=== PATIENT | female | born 1960 | race Caucasian/White ===

== ENCOUNTER → 2019-02-28 | Outpatient (CLI) | payer BC ==
[2019-02-28 09:29] LABS: HEMOGLOBIN 13.4 G/DL (11.5-16.0); MEAN PLATELET VOLUME 8.9 FL (7.4-10.4); RED CELL DISTRIBUTION WIDTH 13.4 % (10.0-14.5); WHITE BLOOD COUNT 3.8 10^3/uL (4.3-11.0)
[2019-02-28 09:57] LABS: ALANINE AMINOTRANSFERASE 18 U/L (0-55); ALBUMIN 4.4 GM/DL (3.2-4.5); ALKALINE PHOSPHATASE 66 U/L (40-136); BILIRUBIN,TOTAL 0.4 MG/DL (0.1-1.0); BUN/CREATININE RATIO 13; CALCIUM 9.9 MG/DL (8.5-10.1); CARBON DIOXIDE 24 MMOL/L (21-32); CHLORIDE 106 MMOL/L (98-107); CHOLESTEROL 221 MG/DL (< 200); CREATININE SERUM 0.84 MG/DL (0.60-1.30); GFR ESTIMATED > 60; GLUCOSE 98 MG/DL (70-105); HDL CHOLESTEROL 40 MG/DL (40-60); POTASSIUM 3.8 MMOL/L (3.6-5.0); SODIUM 144 MMOL/L (135-145); TOTAL PROTEIN 7.1 GM/DL (6.4-8.2); TRIGLYCERIDES 202 MG/DL (<150); VLDL CHOLESTEROL 40 MG/DL (5-40)
[2019-02-28 10:43] LABS: FREE T4 (FREE THYROXINE) 1.08 NG/DL (0.70-1.48)
== END ==
LOC: LAB 08:38
PROVIDERS: ATTEND Nurse Practitioner Family
DX: E03.9 Hypothyroidism, unspecified (principal); E55.9 Vitamin D deficiency, unspecified; D35.2 Benign neoplasm of pituitary gland
CPT/HCPCS: 36415; 80053; 80061; 82306; 84146; 84439; 84443; 85027

== ENCOUNTER → 2019-02-28 | Outpatient (CLI) | payer BC | LOC: RAD 08:34 | PROVIDERS: ATTEND Nurse Practitioner Family | DX: Z12.31 Encounter for screening mammogram for malignant neoplasm of breast (principal) | CPT/HCPCS: 77067 ==

== ENCOUNTER → 2019-05-18 | Outpatient (CLI) | payer BC ==
[2019-05-18 17:39] LABS: ABSOLUTE RETIC # 31 10e9/L (24-90); BASOPHILS % (AUTO) 0 % (0-10); EOSINOPHILS # (AUTO) 0.2 10^3/uL (0.0-0.3); EOSINOPHILS % (AUTO) 3 % (0-10); HEMATOCRIT 39 % (35-52); HEMOGLOBIN 12.8 G/DL (11.5-16.0); LYMPHOCYTES # (AUTO) 1.5 X 10^3 (1.0-4.0); LYMPHOCYTES % (AUTO) 33 % (12-44); MEAN CORPUSCULAR HEMOGLOBIN 27 PG (25-34); MEAN CORPUSCULAR HGB CONC 33 G/DL (32-36); MEAN CORPUSCULAR VOLUME 82 FL (80-99); MEAN PLATELET VOLUME 8.8 FL (7.4-10.4); MONOCYTES # (AUTO) 0.4 X 10^3 (0.0-1.0); MONOCYTES % (AUTO) 9 % (0-12); NEUTROPHILS # (AUTO) 2.6 X 10^3 (1.8-7.8); NEUTROPHILS % (AUTO) 55 % (42-75); PLATELET COUNT 211 10^3/uL (130-400); RED CELL DISTRIBUTION WIDTH 13.3 % (10.0-14.5); RETICULOCYTE % 0.64 % (0.50-2.40); WHITE BLOOD COUNT 4.7 10^3/uL (4.3-11.0)
[2019-05-18 18:19] LABS: BASOPHILS % (MANUAL) 0 %; EOSINOPHILS % (MANUAL) 6 %; LYMPHOCYTES % (MANUAL) 32 %; MONOCYTES % (MANUAL) 6 %; NEUTROPHILS % (MANUAL) 56 %; RBC MORPH NORMAL
== END ==
LOC: LAB 17:26
PROVIDERS: ATTEND Family Medicine
DX: D72.819 Decreased white blood cell count, unspecified (principal)
CPT/HCPCS: 36415; 85007; 85027; 85045

== ENCOUNTER → 2019-09-14 | Outpatient (CLI) | payer BC ==
--- NOTE | 2019-09-14 11:09 | Diagnostic Imaging Report ---
CLINICAL INDICATION: Patient passed out in the middle of the night and hit left eye. Patient has bruising and slight swelling. Patient has pain in that area. EXAM: Axial CT scan of the head performed without IV contrast. Auto Exposure Controls were utilized during the CT exam to meet ALARA standards for radiation dose reduction. COMPARISON: None. FINDINGS: There is no evidence of acute cerebral infarct, intracranial hemorrhage, or gross mass effect. The brain parenchymal volume appears appropriate for patient's age. There is normal mariano-white matter distinction. There is no significant midline shift or herniation. There is no evidence of hydrocephalus. The basal cisterns are unremarkable. There is mild extracranial soft tissue swelling in the left frontal/periorbital region. There is no skull fracture. Visualized portions of the globes and orbits are unremarkable. Otherwise, the skull, extracranial soft tissue, and orbits are unremarkable. The paranasal sinuses are unremarkable. Temporal bones show no significant abnormality. IMPRESSION: 1: There is no evidence of intracranial hemorrhage or skull fracture. 2: There is a small amount of extracranial soft tissue swelling in the left frontal/left periorbital region. The visualized portions of the orbits and globes are intact. Results of this report were discussed with Key Ye APRN, via the telephone on 09/14/2019 at 1100 hours. Dictated by: Dictated on workstation # [id number]
== END ==
LOC: RAD 10:34
PROVIDERS: ATTEND Nurse Practitioner Family
DX: S00.93XA Contusion of unspecified part of head, initial encounter (principal); W19.XXXA Unspecified fall, initial encounter
CPT/HCPCS: 70450

== ENCOUNTER → 2020-05-14 | Outpatient (CLI) | payer BC ==
--- NOTE | 2020-05-14 17:17 | Diagnostic Imaging Report ---
INDICATION: Neck and left shoulder pain AP, lateral and odontoid views of the cervical spine are obtained. There is loss of cervical lordosis with moderate narrowing of C5-C6 disc space. There is also widening of the C4-C5 interspinous space. No acute fracture or malalignment is identified. There is no evidence of thickening of prevertebral soft tissues. IMPRESSION: Localized degenerative disc disease at C5-C6 with loss of cervical lordosis. This could be related to spasm or positioning. If indicated, flexion-extension views versus MRI may be of value. Dictated by: Dictated on workstation # [id number]
== END ==
LOC: RAD 16:39
PROVIDERS: ATTEND Nurse Practitioner Family
DX: M50.322 Other cervical disc degeneration at C5-C6 level (principal); M43.8X2 Other specified deforming dorsopathies, cervical region
CPT/HCPCS: 72040

== ENCOUNTER → 2020-05-21 | Outpatient (CLI) | payer BC ==
--- NOTE | 2020-05-21 10:09 | Diagnostic Imaging Report ---
PROCEDURE: MR imaging cervical spine without contrast. TECHNIQUE: Multiplanar, multisequence MR imaging of the cervical spine was performed without contrast. INDICATION: Arm pain. FINDINGS: There is straightening of the normal cervical lordosis. The vertebral body heights are well-maintained. The prevertebral soft tissues are within normal limits. Posterior fossa is unremarkable. Visualized portions of spinal cord are normal signal intensity morphology. At C2-C3 there is no spinal or neural foraminal encroachment. At C3-C4 there is mild bilateral uncovertebral joint hypertrophy with mild bilateral neural foraminal encroachment. At C4-C5 there is some a bulging and bilateral uncovertebral joint hypertrophy. Slight effacement of ventral thecal sac and mild to moderate bilateral neural foraminal encroachment. C5-C6 there is annular bulging and bilateral uncovertebral joint hypertrophy. Mild central spinal stenosis and moderate bilateral neural foraminal encroachment. C6-C7 there is some annular bulging resulting in slight effacement of the ventral thecal sac. There is bilateral uncovertebral joint hypertrophy with moderate bilateral neural foraminal encroachment. At C7-T1 there is no spinal neural foraminal encroachment. IMPRESSION: Cervical spondylosis and multilevel degenerative disc disease as described. Dictated by: Dictated on workstation # [id number]
== END ==
LOC: RAD 09:30
PROVIDERS: ATTEND Nurse Practitioner Family
DX: M47.812 Spondylosis without myelopathy or radiculopathy, cervical region (principal); M50.323 Other cervical disc degeneration at C6-C7 level; M48.02 Spinal stenosis, cervical region
CPT/HCPCS: 72141

== ENCOUNTER → 2021-01-30 | Day surgery (SDC) | payer BC ==
[~2021-01-30] VITALS: Ht 170.2 cm; Wt 71.8 kg
[2021-01-30] VITALS (9 sets, daily range): BP systolic 108–150; BP diastolic 57–88
[~2021-01-30] MED LIST: ACHD5005 PO; ASPI-1238 PO; BUPIVACAINE 0.5% 30 ML (SENSORCAINE) VIAL ONE; CALC-823 PO; CEPH500C PO; HYDROcodone/APAP 5 MG/325 MG (LORTAB) TAB PO PRN; HYDROmorphone 2 MG/ML VIAL (DILAUDID) ONE; KETOROLAC 30 MG/ML VIAL ONE; LACTATED RINGERS 1,000 ML IV PRN; LACTATED RINGERS 1,000 ML IV SCH; LEVO125T6 PO; LIDOCAINE 1% INJ 20 ML 20 ML VIAL ONE; LIDOCAINE PF 2% 5 ML (XYLOCAINE) VIAL ONE; MELO15TA39 PO; MIDAZOLAM 2 MG/2 ML (VERSED) VIAL ONE; MULT-228 PO; ONDANSETRON 4 MG/2 ML (SDV) Z0FRAN ONE; PRAV10TA PO; SEVOFLURANE (ULTANE) 15 ML INHAL SOLN ONE; VITAMIN D3 PO; ceFAZolin INJECTION 1,000 MG in WATER (STERILE) FOR INJECTION 10 ML IV ONE; fentaNYL INJ 100 MCG/2 ML AMP ONE; morphine INJ 10 MG/ML 1ML (SYR OR VIAL) ONE; proPOfol 200 MG/20 ML (DIPRIVAN) VIAL IV ONE
--- NOTE | 2021-01-30 17:57 | Progress Note-Pre Operative ---
Pre-Operative Progress Note H&P Reviewed The H&P was reviewed, patient examined and no changes noted. Date Seen by Provider: Jan 30, 2021 Time Seen by Provider: 17:57 Date H&P Reviewed: Jan 30, 2021 Time H&P Reviewed: 17:57 Pre-Operative Diagnosis: Fractured right hallux PHIL MIRANDA DPM Jan 30, 2021 17:57
--- NOTE | 2021-01-30 19:50 | Progress Note-Post Operative ---
Post-Operative Progess Note Surgeon (s)/Well Logger (s) Surgeon PHIL MIRANDA DPM Well Logger: none Pre-Operative Diagnosis Fractured right hallux Post-Operative Diagnosis Same Procedure & Operative Findings Date of Procedure 01/30/21 Procedure Performed/Findings ORIF right hallux Anesthesia Type General Estimated Blood Loss Estimated blood loss (mL): Minimal Specimens/Packing Specimens Removed None HPIL MIRANDA DPM Jan 30, 2021 19:50
--- NOTE | 2021-01-31 04:19 | OPERATIVE REPORT ---
DATE OF SERVICE: SURGEON: Yessica Miranda DPM. PREOPERATIVE DIAGNOSIS: Comminuted fracture of the right hallux proximal phalanx. POSTOPERATIVE DIAGNOSIS: Comminuted fracture of the right hallux proximal phalanx. PROCEDURE: Open reduction and internal fixation, right hallux. WOUND CLASS: Clean. ANESTHESIA: General. HEMOSTASIS: Pneumatic thigh tourniquet at 250 mmHg. INDICATIONS: This 60-year-old female presents with a fractured right proximal phalanx. The patient's fracture distal fragment had a significant dorsal angulation causing skin dusking and significant pain for the patient. An attempt at closed reduction was performed in my office yesterday without success. The patient is agreeable to surgical intervention after risks and complications were discussed at length. No guarantees were extended to the patient and she is willing to proceed. DESCRIPTION OF PROCEDURE: The patient was brought back to the operating table, placed in secure supine position. A general anesthetic was then induced. A Patrick block injection was performed to the right lower extremity utilizing 12 mL of 1:1 mixture of 1% Xylocaine, 0.5% Marcaine. Next, the right foot was then prepped and draped in normal sterile manner. The right foot was then elevated, allowed to exsanguinate after which the thigh tourniquet was placed to 250 mmHg. C-arm was introduced to the right foot where the fracture was visualized. Attempt at a closed reduction was performed again without success. An open reduction was then attempted. A dorsal incision to the overlying the proximal phalanx was performed utilizing 4.5 cm longitudinal linear incision. The incision was deepened in the same plane with great care to identify and retract all vital neurovascular structures. The incision was deepened down to the extensor tendon where a Z slide lengthening was performed. The extensor tendon was reflected proximally and distally exposing the interphalangeal joint area. There was a fracture fragment to the distal medial aspect of the proximal phalanx that was dorsally elevated and pressing onto the skin when it was in place. The medial lateral collateral ligaments to the head of the proximal phalanx were released. The major fracture was a longitudinal fracture line extending into the articular cartilage of the head of the proximal phalanx. Once this was reduced into alignment with the rest of the head of the proximal phalanx, overall alignment improved. There is also some dorsal angulation for the entire distal portion of the proximal phalanx. Once the fracture fragments were realigned in a proximal anatomical position, two 20-gauge monofilament wires were utilized for cerclage reduction to the diaphysis of the proximal phalanx. Utilizing standard techniques, a 2.0 snap-off screw of 14 mm of length was driven from medial to lateral from the smaller fragment into the larger fragment of the head of the proximal phalanx. Good reduction was noted. There is, however, some osseous deficits still noted to the diaphysis area. We then utilized Infuse bone graft small kit into the deficits utilizing standard technique. The wound was flushed with copious amounts of normal saline prior to the Infuse bone graft being introduced into the osseous deficits. Intraoperative x-rays were performed noting a good reduction of the angulation both in the AP and the lateral of the foot. A postoperative closure was performed in layers. Deep closure was performed with 3-0 Vicryl for the periosteum as well as the extensor hallucis longus tendon. A 4-0 Vicryl was utilized for closure of the subcutaneous tissue and 4-0 Prolene was utilized for skin closure in a horizontal mattress type stitch. Postoperative injection consisted of 10 mL of 0.5% Marcaine injected in a local infusion to the surgical sites. A postoperative dressing consisted of Betadine soaked Adaptic, sterile 4 x 4, sterile Kerlix all secured with a Coban wrap. Prior to the dressing, the tourniquet was released, noting appropriate cap refill time to all digits including the hallux of the right foot. Postoperative prescription included Vicodin as well as Keflex. She is to be nonweightbearing on the right lower extremity with heel contact for balance and transfers only. We will see the patient back in my office in 10 days' period of time or sooner if necessary. Job ID: [id number] DocumentID: [id number] Dictated Date: 01/30/2021 20:06:35 Swimming Coach Date: 01/31/2021 04:19:18 Dictated By: YESSICA MIRANDA DPM
--- NOTE | 2021-01-31 09:08 | Diagnostic Imaging Report ---
INDICATION: Fluoroscopy for right foot surgery. Fluoroscopy was provided in the OR during right foot surgery. 6 seconds of fluoroscopic time was utilized. 4 images were obtained demonstrating postoperative changes involving the proximal phalanx of the great toe. IMPRESSION: Fluoroscopy for right foot surgery. Dictated by: Dictated on workstation # [id number]
--- NOTE | 2021-02-05 07:15 | Anesthesia-General Post-Op ---
General Patient Condition Mental Status/LOC: Same as Preop Cardiovascular: Satisfactory Nausea/Vomiting: Absent Respiratory: Satisfactory Pain: Controlled Complications: Absent Post Op Complications Complications None Follow Up Care/Instructions Patient Instructions None needed. Anesthesia/Patient Condition Patient Condition Patient is doing well, no complaints, stable vital signs, no apparent adverse anesthesia problems. No complications reported per nursing. SHANELL KOHLER CRNA Feb 05, 2021 07:14
== END ==
LOC: SDC 14:30 → EDSTATUS 01-31 09:25
PROVIDERS: ATTEND Podiatrist Foot & Ankle Surgery
DX: S92.101A Unspecified fracture of right talus, initial encounter for closed fracture (principal); E78.5 Hyperlipidemia, unspecified; Z79.82 Long term (current) use of aspirin; Z79.890 Hormone replacement therapy
CPT/HCPCS: 28505; 76000; 87081; C1713 ×2